=== PATIENT | female | born 1985 | race Caucasian/White ===

== ENCOUNTER 2019-01-07 09:14 | Emergency (ER) | payer MEDICAID, OTHER ==
--- NOTE | 2019-01-07 10:59 | CT ---
DATE OF SERVICE: 01/07/2019 CLINICAL DATA: Kidney stone Unenhanced abdomen and pelvic CT: Multislice acquisition through the abdomen and pelvis without IV or oral contrast was performed. No priors. The lung bases are clear. The liver appears normal. The patient is status post cholecystectomy. The spleen is normal sized homogeneous attenuation. The pancreas appears normal. The right and left adrenals appear normal. There are bilateral nonobstructing renal calculi. The right and left kidneys otherwise appear normal. No hydronephrosis or hydroureter. No ureterolithiasis. The bladder is fluid-filled. It appears normal. The patient is status post appendectomy. There is a large amount of stool noted throughout the colon. There is a small amount of free fluid noted within the pelvis. No free air. No dilated loops of bowel. No adenopathy. No aortic aneurysm. Impression: 1) bilateral nonobstructing renal calculi. No evidence of ureteral calculi. No hydronephrosis or hydroureter. 2) Large amount of stool present throughout the colon Other findings as discussed above. MTDD
[2019-01-07] MEDS ORDERED: Sodium Chloride 0.9% 1,000 ML IV ONE (11:00)
[2019-01-07] MEDS ORDERED: Acetaminophen/oxyCODONE 325-5 MG Tab ONE (11:08)
[2019-01-07] MEDS ORDERED: cefTRIAXone 1 GM Vial ONE (11:09)
[2019-01-07] MEDS ORDERED: Ondansetron 4 MG Tab.DIS ONE (11:09)
--- NOTE | 2019-01-07 15:42 | EDM.PDOC ---
ED HPI GENERAL MEDICAL PROBLEM - General Chief Complaint: General Stated Complaint: possible kidney stone Time Seen by Provider: 01/07/19 09:30 Source of Information: Reports: Patient History Limitations: Reports: No Limitations - History of Present Illness INITIAL COMMENTS - FREE TEXT/NARRATIVE: This is a 33yo F with history of renal stones here for right flank pain. Patient states she has had fever and chills the past few days and the pain is worsening. Onset: Gradual Duration: Day(s): Location: Reports: Abdomen Right Lower Groin Pain Score (Numeric/FACES): 10 - Related Data Allergies Allergy/AdvReac Type Severity Reaction Status Date / Time No Known Allergies Allergy Verified 01/07/19 10:24 ED ROS GENERAL - Review of Systems Review Of Systems: ROS reveals no pertinent complaints other than HPI. ED EXAM, GENERAL - Physical Exam Exam: See Below Exam Limited By: No Limitations General Appearance: Alert, WD/WN, Mild Distress Eye Exam: Bilateral Eye: EOMI, PERRL Ears: Normal External Exam Nose: Normal Inspection Throat/Mouth: Normal Inspection Head: Atraumatic, Normocephalic Neck: Normal Inspection Respiratory/Chest: No Respiratory Distress, Lungs Clear Cardiovascular: Normal Peripheral Pulses, Regular Rate, Rhythm Peripheral Pulses: 2+: Dorsalis Pedis (L), Dorsalis Pedis (R) GI/Abdominal: Normal Bowel Sounds Back Exam: CVA Tenderness (R) Extremities: Normal Inspection Course - Vital Signs Last Recorded V/S: Last Vital Signs Temp 38.0 C 01/07/19 09:37 Pulse 115 H 01/07/19 09:37 Resp 16 01/07/19 09:37 BP 110/63 01/07/19 09:37 Pulse Ox 98 01/07/19 09:37 - Orders/Labs/Meds Orders: Active Orders 24 hr Category Date Time Status CULTURE URINE [RM] Stat Lab 01/07/19 10:13 Received Labs: Laboratory Tests 01/07/19 01/07/19 Range/Units 10:01 10:23 Urine Color Yellow Urine Appearance Cloudy (CLEAR) Urine pH 7.0 (5.0-8.0) Ur Specific [place] 1.020 (1.003-1.030) Urine Protein 100 H (NEGATIVE) mg/dL Urine Glucose (UA) Negative (NEGATIVE) mg/dL Urine Ketones 40 H (NEGATIVE) mg/dL Urine Occult Blood Small H (NEGATIVE) Urine Nitrite Positive H (NEGATIVE) Urine Bilirubin Negative (NEGATIVE) Urine Urobilinogen 0.2 (0.2-1.0) E.U./dL Ur Leukocyte Esterase Moderate H (NEGATIVE) Urine RBC 0-5 H /HPF Urine WBC 75-100 H /HPF Urine WBC Clumps Few /HPF Ur Squamous Epith Cells Few /HPF Urine Bacteria Moderate H /HPF Urine HCG, Qual Negative (NEGATIVE) Meds: Medications Discontinued Medications Generic Name Dose Route Start Last Admin Trade Name Grzegorz PRN Reason Stop Dose Admin Ceftriaxone Sodium Confirm 01/07/19 11:09 01/07/19 11:15 Rocephin Administered 01/07/19 11:10 1 gm Dose Administration 1 gm .ROUTE .STK-MED ONE Sodium Chloride 1,000 mls @ 999 mls/hr 01/07/19 11:00 01/07/19 11:00 Normal Saline IV 01/07/19 12:00 999 mls/hr .BOLUS ONE Administration Ondansetron HCl Confirm 01/07/19 11:09 01/07/19 11:15 Zofran Odt Administered 01/07/19 11:10 4 mg Dose Administration 4 mg .ROUTE .STK-MED ONE Oxycodone/Acetaminophen Confirm 01/07/19 11:08 01/07/19 11:13 Percocet 325-5 Mg Administered 01/07/19 11:09 1 tab Dose Administration 1 tab .ROUTE .STK-MED ONE Departure - Departure Time of Disposition: 11:30 Disposition: Home, Self-Care 01 Condition: Good Clinical Impression: Pyelonephritis - Discharge Information Instructions: Pyelonephritis, Adult, [id number], Urinary Tract Infection, Adult Referrals: PCP,None [Primary Care Provider] - Forms: ED Department Discharge Care Plan Goals: Return to hospital or clinic if symptoms worsen or return. Take antibiotic as prescribed. Take pain med as needed. Call with any questions or concerns. - Problem List Review Problem List Initiated/Reviewed/Updated: Yes - My Orders Last 24 Hours: My Active Orders 01/07/19 10:13 CULTURE URINE [RM] Stat - Assessment/Plan Last 24 Hours: My Active Orders 01/07/19 10:13 CULTURE URINE [RM] Stat Plan: Counseled on antibiotics treatment and management of acute pyelonephritis. Discussed close f/u with PCP at home if symptoms persist or worsen for ER and further workup or admission. Patient understands risks of pyelonephritis and infection and will f/u.
== END 2019-01-07 12:04 | disposition home or self-care (01) ==
LOC: LB.ED 09:14
DX: N12 Tubulo-interstitial nephritis, not specified as acute or chronic (principal)
CPT/HCPCS: 74176; 81001; 81025; 87086; 87088; 87186; 96360; 99284; A9270; J0696; J7030

== ENCOUNTER 2019-06-11 01:25 | Emergency (ER) | payer MEDICAID | END 2019-06-11 01:59 | disposition home or self-care (01) | LOC: LB.ED 01:25 | DX: O46.91 Antepartum hemorrhage, unspecified, first trimester (principal); Z3A.13 13 weeks gestation of pregnancy | CPT/HCPCS: 81001; 99282; 99284 ==